=== PATIENT | female | born 1975 | race Asian ===

== ENCOUNTER 2018-10-09 20:21 | Inpatient (IN) | payer OTHER ==
[2018-10-09] MEDS ORDERED: ONDANSETRON 4 MG INJ IV (21:30)
[2018-10-09] MEDS ORDERED: NACL 0.9% 3 ML SYG IV (21:30)
[2018-10-09] MEDS ORDERED: ACETAMINOPHEN 325 MG TAB PO (21:30)
[2018-10-09] MEDS: CEFEPIME 1GM/50 ML (PMX) 50 ML IVPB (21:36)
[2018-10-09] MEDS: SOD CHLORIDE 0.9% 1,000 ML IV (21:36)
[2018-10-09] MEDS: VANCOMYCIN 1 GM 250 ML IVPB (22:56)
[2018-10-10] MEDS: HYDROCODONE/APAP (5/325) TAB PO (05:14)
[2018-10-10 06:23] LABS: ADD MAN DIFF? NO
[2018-10-10 06:35] LABS: BASOPHILS % 0.3 % (0.0-2.0); EOSINOPHILS # 0.1 10^3/ul (0.0-0.5); EOSINOPHILS % 1.6 % (0.0-7.0); HEMATOCRIT 34.2 % (37.0-47.0); HEMOGLOBIN 11.3 g/dl (12.0-16.0); LYMPHOCYTES # 2.4 10^3/ul (0.8-2.9); LYMPHOCYTES % 27.8 % (15.0-51.0); MEAN CORPUSCULAR HEMOGLOBIN 29.2 pg (29.0-33.0); MEAN CORPUSCULAR VOLUME 88.4 fl (82.0-101.0); MEAN PLATELET VOLUME 8.4 fl (7.4-10.4); MONOCYTE # 0.7 10^3/ul (0.3-0.9); MONOCYTES % 7.8 % (0.0-11.0); NEUTROPHIL # 5.4 10^3/ul (1.6-7.5); NEUTROPHILS % 62.3 % (39.0-77.0); PLATELET COUNT 242 10^3/UL (140-415); RED BLOOD COUNT 3.87 10^6/ul (4.20-5.40); RED CELL DISTRIBUTION WIDTH 12.5 % (11.5-14.5)
[2018-10-10 06:35] LABS: WHITE BLOOD COUNT 8.7 10^3/ul (4.8-10.8)
[2018-10-10 06:59] LABS: ALANINE AMINOTRANSFERASE 34 IU/L (13-69); ALBUMIN 3.9 g/dl (3.3-4.9); ALBUMIN/GLOBULIN RATIO 1.11; ALKALINE PHOSPHATASE 57 IU/L (42-121); ANION GAP 11 (5-13); ASPARTATE AMINO TRANSFERASE 31 IU/L (15-46); BILIRUBIN,INDIRECT 1.2 mg/dl (0-1.1); BILIRUBIN,TOTAL 1.2 mg/dl (0.2-1.3); BLOOD UREA NITROGEN 6 mg/dl (7-20); CALCIUM 8.6 mg/dl (8.4-10.2); CARBON DIOXIDE 23 mmol/L (21-31); CHLORIDE 104 mmol/L (97-110); CREATININE 0.49 mg/dl (0.44-1.00); Estimated GFR > 60 mL/min (>60); GLUCOSE 108 mg/dl (70-220); POTASSIUM 3.7 mmol/L (3.5-5.1); SODIUM 138 mmol/L (135-144); TOTAL PROTEIN 7.4 g/dl (6.1-8.1)
[2018-10-10 07:24] LABS: HEMOGLOBIN A1C 5.4 % (0-5.9)
[2018-10-10] MEDS: CEFEPIME 1GM/50 ML (PMX) 50 ML IVPB ×2 (08:20→20:28)
[2018-10-10] MEDS ORDERED: VANCOMYCIN IV PER PHARMACY XX (09:00)
[2018-10-10] MEDS: VANCOMYCIN 500 MG (PMX) 100 ML IVPB (12:42)
[2018-10-11] MEDS: VANCOMYCIN 500 MG (PMX) 100 ML IVPB ×2 (00:43→12:04)
[2018-10-11 06:11] LABS: ADD MAN DIFF? NO
[2018-10-11 06:25] LABS: BASOPHILS % 0.5 % (0.0-2.0); EOSINOPHILS # 0.3 10^3/ul (0.0-0.5); EOSINOPHILS % 4.7 % (0.0-7.0); HEMATOCRIT 35.1 % (37.0-47.0); HEMOGLOBIN 11.4 g/dl (12.0-16.0); LYMPHOCYTES # 2.5 10^3/ul (0.8-2.9); LYMPHOCYTES % 39.5 % (15.0-51.0); MEAN CORPUSCULAR HEMOGLOBIN 28.8 pg (29.0-33.0); MEAN CORPUSCULAR HGB CONC 32.5 g/dl (32.0-37.0); MEAN CORPUSCULAR VOLUME 88.6 fl (82.0-101.0); MEAN PLATELET VOLUME 8.4 fl (7.4-10.4); MONOCYTE # 0.5 10^3/ul (0.3-0.9); MONOCYTES % 8.4 % (0.0-11.0); NEUTROPHILS % 46.7 % (39.0-77.0); PLATELET COUNT 253 10^3/UL (140-415); RED BLOOD COUNT 3.96 10^6/ul (4.20-5.40); RED CELL DISTRIBUTION WIDTH 12.4 % (11.5-14.5)
[2018-10-11 06:25] LABS: WHITE BLOOD COUNT 6.4 10^3/ul (4.8-10.8)
[2018-10-11 06:45] LABS: PHOSPHORUS 3.7 mg/dl (2.5-4.9)
[2018-10-11 06:45] LABS: MAGNESIUM 2.1 mg/dl (1.7-2.5)
[2018-10-11 06:48] LABS: CHOLESTEROL 177 mg/dl (100-200)
[2018-10-11 06:48] LABS: CHOL/HDL RATIO 3.6 RATIO; HDL CHOLESTEROL 48 mg/dl (34-88); LDL CHOLESTEROL,CALCULATED 117 mg/dl; TRIGLYCERIDES 58 mg/dl (0-149)
[2018-10-11 06:52] LABS: ANION GAP 9 (5-13); BLOOD UREA NITROGEN 10 mg/dl (7-20); CALCIUM 8.8 mg/dl (8.4-10.2); CARBON DIOXIDE 25 mmol/L (21-31); CHLORIDE 107 mmol/L (97-110); CREATININE 0.48 mg/dl (0.44-1.00); Estimated GFR > 60 mL/min (>60); GLUCOSE 94 mg/dl (70-220); POTASSIUM 4.1 mmol/L (3.5-5.1); SODIUM 141 mmol/L (135-144)
[2018-10-11] MEDS: CEFEPIME 1GM/50 ML (PMX) 50 ML IVPB ×2 (08:28→19:48)
[2018-10-11 23:42] LABS: VANCOMYCIN,TROUGH 5.4 ug/ml (10.0-20.0)
[2018-10-12] MEDS: VANCOMYCIN 500 MG (PMX) 100 ML IVPB (00:12)
[2018-10-12] MEDS: VANCOMYCIN 750 MG (PMX) 250 ML IVPB (08:51)
[2018-10-12] MEDS: CEFEPIME 1GM/50 ML (PMX) 50 ML IVPB (10:52)
== END 2018-10-12 13:57 | disposition home health service (06) | DRG 603 ==
LOC: TEL 20:21
PROVIDERS: Internal Medicine
DX: L03.113 Cellulitis of right upper limb (principal); L02.413 Cutaneous abscess of right upper limb; B95.62 Methicillin resistant Staphylococcus aureus infection as the cause of diseases classified elsewhere
CPT/HCPCS: 80048; 80053; 80061; 80202; 83036; 83735; 84100; 84443; 85025; 87081